=== PATIENT | male | born 2000 | race Hispanic/Latino ===

== ENCOUNTER 2022-08-05 12:37 | Emergency (ER) | payer OTHER ==
[~2022-08-05] VITALS: Ht 167.6 cm; Wt 77.7 kg
[2022-08-05] MEDS ORDERED: HYDROCODON-ACE1 EA10 PO (14:16)
[2022-08-05 14:24] VITALS: BP 145/89
== END 2022-08-05 14:24 | disposition home or self-care (01) ==
LOC: ED 12:37
DX: S20.211A Contusion of right front wall of thorax, initial encounter (principal); Y04.2XXA Assault by strike against or bumped into by another person, initial encounter
CPT/HCPCS: 71250; J2270

== ENCOUNTER 2023-05-10 17:32 | Emergency (ER) | payer OTHER ==
[~2023-05-10] VITALS: Ht 167.6 cm; Wt 71.7 kg
[~2023-05-10 17:32] MED LIST: HYDROCODON-ACE1 EA10 PO
[2023-05-10 18:37] LABS: INFLUENZA B NAA NEGATIVE (NEGATIVE); RESPIRATORY SYNCYTIAL VIR NAA NEGATIVE (NEGATIVE)
[2023-05-10] MEDS ORDERED: SODIUM CHLORIDE 0.9% 1,000 ML IV PRN (19:00)
[2023-05-10] MEDS ORDERED: ondansetron HCL 4 MG/2 ML VIAL IV ONE (19:00)
[2023-05-10 19:19] LABS: BASOPHILS 0.2 % (0-2); EOSINOPHILS 0.4 % (0-6); HEMATOCRIT 49.9 % (35.0-50.0); HEMOGLOBIN 16.7 g/dL (12.0-18.0); LYMPHOCYTES 2.3 % (24-44); MCH 29.9 (27-36); MCHC 33.5 g/dl (30-36); MCV 89.1 fl (81-99); MONOCYTES 2.6 % (0-12); NEUTROPHILS 94.5 % (39-80); PLATELET COUNT 312 K/uL (140-440); RDW 13.1 (10.5-15.0)
[2023-05-10 19:35] LABS: ALBUMIN 4.4 g/dL (3.4-5.0); ALBUMIN/GLOBULIN RATIO 1.16 (1.1-2.4); ANION GAP 13.4 (7-21); BILIRUBIN, TOTAL 1.9 ng/dL (0.2-1.0); CALCIUM 9.4 mg/dL (8.5-10.1); MAGNESIUM 1.7 mg/dL (1.8-2.4); POTASSIUM 4.4 mmol/L (3.5-5.1); PROTEIN, TOTAL 8.2 g/dL (6.4-8.2)
[2023-05-10 19:51] LABS: BILIRUBIN, URINE NEGATIVE (negative); BLOOD/HGB, URINE NEGATIVE (Negative); KETONE, URINE SMALL (Negative); LEUK ESTERASE, URINE NEGATIVE (negative); NITRITE, URINE NEGATIVE (negative)
[2023-05-10] MEDS ORDERED: ACETAMINOPHEN 500 MG TAB PO ONE (20:30)
[2023-05-10] MEDS ORDERED: ONDANSETRON ODT8 MG PO (20:30)
[2023-05-10] MEDS ORDERED: SODIUM CHLORIDE 0.9% 1,000 ML IV SCH (20:30)
[2023-05-10] MEDS ORDERED: ONDANSETRON 4 MG HOME.PACK SL ONE (20:30)
[2023-05-10 21:17] VITALS: BP 114/66
== END 2023-05-10 21:18 | disposition home or self-care (01) ==
LOC: ED 17:32
PROVIDERS: Emergency Medicine
DX: K52.9 Noninfective gastroenteritis and colitis, unspecified (principal); D72.829 Elevated white blood cell count, unspecified
CPT/HCPCS: 36415; 80053; 81003; 83735; 85025; 85060; 87502; 96361; 96374; 99284-25; A9270; J2405; J7030; U0002